=== PATIENT | female | born 2000 | race Two or more races ===

== ENCOUNTER 2025-04-08 00:25 | Observation (INO) | payer MEDICAID, OTHER ==
[~2025-04-08] VITALS: Ht 160 cm; Wt 59.0 kg
[2025-04-08 01:14] LABS: Fern Testing Negative
[2025-04-08] MEDS: LACTATED RINGER'S 1,000 ML IV ONE (01:15)
[2025-04-08] MEDS: ONDANSETRON HCL 4 MG/2 ML VIAL IV ONE (01:15)
--- NOTE | 2025-04-08 01:54 | DVH ---
OB ULTRASOUND <14 WEEKS: HISTORY: LEAKING OF FLUID AND CRAMPING TECHNIQUE: Multiple real-time grayscale sonographic images of the pelvis with duplex Doppler color f low, spectral and M-mode analysis. COMPARISON: None FINDINGS: Limited assessment for placenta location in cervix. Cervix is closed measuring 3.3 cm. Single live intrauterine gestation in the cephalic position. heart rate 165 beats per minute. Placenta is anterior and clear of the internal os. IMPRESSION: Single live IUP. Cervix is closed measuring 3.7 cm. Placenta is clear of the internal os.
[2025-04-08 02:13] LABS: Urine Protein, UAD Negative (Negative)
== END 2025-04-08 02:26 | disposition home or self-care (01) ==
LOC: LDRP 00:25
PROVIDERS: ADMIT Obstetrics & Gynecology; ATTEND Obstetrics & Gynecology
DX: O62.9 Abnormality of forces of labor, unspecified (principal); O21.2 Late vomiting of pregnancy; Z3A.27 27 weeks gestation of pregnancy; Z98.890 Other specified postprocedural states
CPT/HCPCS: 76815; 81001; 81002; 84112; 94760; G0378; Q0114; J2405

== ENCOUNTER 2025-04-29 16:05 | Observation (INO) | payer MEDICAID ==
[~2025-04-29] VITALS: Ht 157.5 cm; Wt 65.8 kg
--- NOTE | 2025-04-29 17:04 | DVH ---
LIMITED OB ULTRASOUND > 14 WKS: HISTORY: fall TECHNIQUE: Multiple real-time grayscale images of the gravid uterus with duplex Doppler color flow and M-mode spectral analysis. TRANSDUCER: Transabdominal FINDINGS: IUP single live fetus at 30 weeks 3 days based on composite averages of the BPD, head circumference, abdominal circumference and femur length heart rate 147 beats per minute BEATA 9.3 cm, MVP: 4.7 cm Cervix 3.15 Cephalic Presentation Anterior Grade 2 Placenta without previa or abruption. IMPRESSION: 1. IUP single live fetus at 30 weeks 3 days AUA corresponding to an PRERNA of 07/05/2025
== END 2025-04-29 17:23 | disposition home or self-care (01) ==
LOC: LDRP 16:05
PROVIDERS: ADMIT Obstetrics & Gynecology; ATTEND Obstetrics & Gynecology
DX: O36.8130 Decreased fetal movements, third trimester, not applicable or unspecified (principal); Z3A.30 30 weeks gestation of pregnancy; Z98.890 Other specified postprocedural states
CPT/HCPCS: 59025; 76815; 81002; 94760; G0378

== ENCOUNTER 2025-05-21 14:55 | Observation (INO) | payer MEDICAID ==
[~2025-05-21] VITALS: Ht 160 cm; Wt 65.8 kg
[2025-05-21] MEDS: TERBUTALINE SULFATE 1 MG/ML 1ML VIAL SC SCH (16:02)
[2025-05-21 16:25] LABS: Urine Protein, UAD Negative (Negative)
[2025-05-21 16:26] LABS: Vaginal Bacteria Many; Vaginal Epithelial Cells Few; Vaginal Trichomonas Not Present
[2025-05-21 16:27] LABS: Vaginal Clue Cells Few
[2025-05-21] MEDS ORDERED: PREN-96 PO (17:22)
--- NOTE | 2025-05-21 22:53 | DVHDS2 ---
Discharge Summary Date of Admission May 21, 2025 at 15:09 Date of Discharge: May 21, 2025 Admitting Diagnosis 33.4 weeks rule out labor and srom Wounds: none Labs/Diagnostic Data: Laboratory Results Test 05/21/25 16:00 05/21/25 15:35 Urine Color Light-yellow (Yellow) Urine Clarity Turbid (Clear) Urine pH 6.5 (5.0-9.0) Urine Specific [place] 1.010 (1.001-1.035) Urine Protein Negative (Negative) Urine Ketones Negative (Negative) Urine Blood Negative /uL (Negative) Urine Nitrite Negative (Negative) Urine Bilirubin Negative (Negative) Urine Urobilinogen Normal mg/dL (Negative) Urine Leukocyte Esterase 2+ /uL (Negative) Urine RBC 1 /hpf (0 - 4) Urine Microscopic WBC 11 /HPF (0-5) Urine Squamous Epithelial Cells Few /hpf (<5) Urine Bacteria Few /hpf (None Seen) Urine Mucus Few (None Seen) Urine Glucose Normal mg/dL (Normal) Placental Tjlfb-3-Nlptzntyaolct Negative Vaginal WBC (Wet Prep) Few Vaginal RBC (Wet Prep) Rare Vaginal Epithelial Cells (Wet Prep) Few Vaginal Bacteria (Wet Prep) Many Vaginal Trichomonas (Wet Prep) Not present Vaginal Yeast (Wet Prep) None seen Vaginal Clue Cells (Wet Prep) Few Brief Hx & Hospital Course: NST BPP Consults/Reason for consult none Operations or Procedures nst bpp reassuring Condition at Discharge: Good Final Diagnosis/Problems List 33.4 weeks Discharge Disposition: Home Discharge Instruct/Medications Diet: Regular Activity: No Restrictions, As Tolerated Activity comment: kick counts labor precautions Follow Up/Referral: as scheduled Medications: no new meds Scheduled Vit W/ Ferrous Fumara ( One Daily), 1 TAB PO DAILY, (Reported) Discharge Statement: "Patient was advised to return to the ER or call 911 if any headaches, dizz iness, shortness of breath, chest pain, abdominal pain, bleeding, fevers, or worsening of medical condition. Patient was counseled about treatment plan, medications, possible side effects, patientverbalized understanding. All questions were answered to the best of my ability. This discharge took greater then 30 minutes in planning, reviewing documentation, counseling the patient, and discussing with other team members." ASSESSMENT ASSESSMENT Assessment Visit Coding OBGYN Date of Service: May 21, 2025 Billing Provider: HARIS MONTANEZ DO MICRO PALEONTOLOGIST Common Visit Codes: [id number] INP/OBS CARE(HIGH), 07765-XDZ/OBS SAME DATE (LOW), 82736-LUR/OBS SAME DATE (MOD) MICRO PALEONTOLOGIST Procedure Codes: 13291-36- NON-STRESS TEST HARIS MONTANEZ DO May 21, 2025 22:53
== END 2025-05-21 17:45 | disposition home or self-care (01) ==
LOC: LDRP 14:55 → UNDOADMOB 14:55 → LDRP 15:09
PROVIDERS: ADMIT Obstetrics & Gynecology; ATTEND Obstetrics & Gynecology
DX: O62.9 Abnormality of forces of labor, unspecified (principal); Z3A.33 33 weeks gestation of pregnancy; Z98.890 Other specified postprocedural states
CPT/HCPCS: 59025; 81001; 81002; 84112; 87210; 94760; 96372; A4649; G0378; J3105

== ENCOUNTER 2025-06-15 20:01 | Inpatient (IN) | payer MEDICAID ==
[~2025-06-15] VITALS: Ht 160 cm; Wt 66.7 kg
[~2025-06-15 20:01] MED LIST: PREN-96 PO
[2025-06-15 21:08] LABS: Fern Testing Negative
--- NOTE | 2025-06-15 21:09 | DVH ---
LIMITED OB ULTRASOUND > 14 WKS: HISTORY: labor check, previous placenta previa TECHNIQUE: Multiple real-time grayscale images of the gravid uterus with duplex Doppler color flow and M-mode spectral analysis. TRANSDUCER: Transabdominal COMPARISON: US OB LIMITED on DOS: 05/23/25, US OB BIOPHYSICAL PROFILE W/O N-STR on DOS: 05/23/25, US OBSTERICAL LIMITED on DOS: 04/29/25, US OBSTERICAL LIMITED on DOS: 04/08/25 FINDINGS: IUP single live fetus at 36 weeks and 6 days based on composite averages of the BPD, head circumference, abdominal circumference and femur length Estimated weight 2983 grams heart rate 144 beats per minute BEATA 12.2 cm, deepest pocket measures 6.2 cm. Cervix is not evaluated Cephalic Presentation Anterior Placenta without previa or abruption. Limited assessment of anatomy. Grossly, 4-chamber heart, stomach, kidneys and bladder are within normal limits. IMPRESSION: IUP single live fetus at 36 weeks and 6 days AUA corresponding to an PRERNA of 07/07/2025
[2025-06-15] MEDS: LACTATED RINGER'S 1,000 ML IV ONE (21:46)
[2025-06-15] MEDS: LACTATED RINGER'S 1,000 ML IV SCH (21:48)
[2025-06-15] MEDS: NIFEdipine 10 MG CAP PO SCH (21:49)
[2025-06-15 22:24] LABS: Hematocrit 37.6 % (36.0-46.0); Hemoglobin 13.0 g/dL (12.2-16.2); Mean Corpuscular Hemoglobin 31.3 pg (28.0-32.0); Mean Corpuscular Volume 90.4 fL (80.0-100.0); Nucleated Red Blood Cells % 0.1 %
[2025-06-15 22:31] LABS: Alanine Aminotransferase 21 U/L (7-40); Albumin 4.0 g/dL (3.2-4.8); Alkaline Phosphatase 109 U/L (46-116); Anion Gap 11 (5-15); BUN/Creatinine Ratio 7.2 (10.0-20.0); Bilirubin, Total 0.6 mg/dL (0.2-1.0); Blood Urea Nitrogen 5 mg/dL (9-23); Calcium 9.1 mg/dL (8.7-10.4); Carbon Dioxide 18 mmol/L (20-31); Chloride 112 mmol/L (98-107); Glucose 68 mg/dL (74-106); Potassium 3.7 mmol/L (3.5-5.1); Sodium 141 mmol/L (136-145); Total Protein 7.0 g/dL (5.7-8.2)
[2025-06-15 22:39] LABS: INR 0.91 (0.9-1.15); Partial Thromboplastin Time 27.6 SEC (24.5-34.5); Prothrombin Time 9.7 sec (9.3-11.8)
--- NOTE | 2025-06-15 23:46 | DVHHP2 ---
OB CC & HPI Date Date of Admission: Jun 15, 2025 Patient Identification: : 6 Para: 3 EDC: Jul 05, 2025 EGA: 37w 1d Chief Complaints: Reason for admission: other (Contractions) Indication for : desires repeat , other (Contractions) Other reason for admission: 24yo G6, 3023, EDC 07/05/25, EGA 37w 1d brought in by ambulance / paramedics with report of contractions that started at 5:55pm, possible rupture of membranes. Receiving care with Dr Bowser at the [facility]. complicated by h/o previous C- section x3 History of Present Complaints 24yo G6, 3023, EDC 07/05/25, EGA 37w 1d brought in by ambulance / paramedics with report of contractions that started at 5:55pm, possible rupture of membranes. She reports normal movements, no CUMMINS , vision changes or epigastric pain Receiving care with Dr Bowser at the [facility]. complicated by h/o previous C- section x3 Past Medical History Cardiac: No pertinent Hx Pulmonary: No pertinent Hx Central Nervous System: No pertinent Hx GI: No pertinent Hx Hemotology/Oncology: No pertinent Hx Hepatobiliary: No pertinent Hx Psychiatric: No pertinent Hx Musculoskeletal: No pertinent Hx Rheumotologic: No pertinent Hx Infectious Disease: No peritnent Hx ENT: No pertinent Hx Renal/: No pertinent Hx Endocrine: No pertinent Hx Dermatology: No pertinent Hx Past Surgical History: Others 2 C- sections done in [place], 1 C- Section in [place]. OB History OB History Care: [facility] Care Ultrasounds: Normal mid trimester US Obstetrical Complications: None Medical Complications: None ( ) Other Concerns: > h/o C- section x3 > Rh Negative; had Rhogam on 04/12/25 > Rubella NI Allergies: Coded Allergies: NO KNOWN ALLERGIES (Unverified , 04/08/25) Home Meds Active Scripts Ibuprofen (Ibuprofen) 800 Mg Tab, 800 MG PO TID PRN for 5 Days, #21 TAB Prov:BRENDA BOWSER DO 06/16/25 Hydrocodone-Acetaminophen (Hydrocodone/Acetaminophen 10-325 mg) 1 Tab Tab, 1 TAB PO Q6HPRN PRN for 6 Days, #24 TAB Prov:BRENDA BOWSER DO 06/16/25 Docusate Sodium (Colace) 100 Mg Cap, 1 CAP PO BID, #60 CAP 2 Refills Prov:BRENDA BOWSER DO 06/16/25 Reported Medications Vit W/ Ferrous Fumara ( One Daily) Daily Tab, 1 TAB PO DAILY, #90 TAB 3 Refills 05/21/25 Current Medications Current Medications Medications (Trade) Dose Ordered Sig/Francisco Route PRN Reason Start Time Stop Time Status Last Admin Nifedipine (Procardia Capsule) 10 mg Q4HR PO 06/15/25 22:00 06/15/25 21:49 Lactated Ringer's 1,000 ml @ 125 mls/hr Q8H IV 06/15/25 21:30 06/15/25 21:48 Family & Social History Family/Social History Past Family/Social History: Non- contributory Blood Type: A- Rubella: not immune RPR/VDRL: Negative GBS Status: Unknown HBsAG: Negative Review of Systems Constitutional: No symptom reported Ears, Nose, & Throat: No symptom reported Eyes: No symptom reported Pulmonary/Respiratory: No symptom reported Cardiovascular: No symptom reported Gastrointestinal: No symptom reported Genitourinary: No symptom reported Musculoskeletal: No symptom reported Skin: No symptom reported Psychiatric: No symptom reported Endocrine: No symptom reported Hemotologic/Lymphatic: No symptom reported OB Admission Exam Physical Exam Vitals: Vital Signs Date Time Temp Pulse Resp B/P (MAP) Pulse Ox O2 Delivery O2 Flow Rate FiO2 06/15/25 21:49 115/69 HEENT: TMs Normal, Fontanelles Normal, Nasal Mucosa Normal, Eyes non-injected, Oropharynx Normal, PERRLA, Moist Membranes, EOMI Heart: Rhythm Normal Lungs: Clear Abdomen: Gravid (and non-tender) Extremities: Normal Reflexes: Normal Cervical Dilatation: Fingertip Effacement: 50% Station: -2 Membranes: Intact Heart Rate: 130's Accelerations: Accelerations Present Decelerations: No Decelerations Roof Shingler Variability: Average (6-25) Contractions on Admission: < 5 Minutes Apart Date/Time Contractions Began: 06/15/25 @17:55 Frequency of Contractions: 2-3min Duration: 45 Intensity: Mild OB Plan Plan Admitting Diagnosis: IUP at 37w 1d h/o C- section x3 Desires Repeat C- section with BTL Contractions REPEAT W/BTL, CONTRACTIONS Plan: Section Other Plan: > Plan of care discussed with Patient, partner & family > Assessment to r/o SROM: > Speculum exam shows no pooling, Nitrazine test, amniosure,and ferning negative > BPP 8/8; BEATA 12.2cm MVP 6.2cm EFW 2983g > Process, Risks, benefits, of available management options discussed, including starting with expectant management - to see if UCs will resolve with IV hydration, IIf contractions persist, will proceed to do a > > > > Repeat C- section with BTL > Patient agrees to starting with expectant management at this time; other int erventions as indicated > Informed Consent obtained > Consent for possible blood transfusion obtained. > All questions answered. > Admit for Observation > IV hydration > Routine C- section Pre-operative Lab > Routine L & D Admission orders > Consents obtained > Possible Risks and possible complications explained > If contractions persists with hydration, will proceed to do a Repeat Section with BTL > Supportive care Visit Coding OBGYN Date of Service: Jun 15, 2025 Billing Provider: PRIMO JAY CNM INDUSTRIAL CLEANER Common Visit Codes: [id number] INP/OBS CARE (HIGH) INDUSTRIAL CLEANER Procedure Codes: 68603-85- NON-STRESS TEST PRIMO JAY CNM Jun 15, 2025 23:46
[2025-06-16] VITALS (17 sets, daily range): BP systolic 96–118; BP diastolic 58–76; PULSE 66–90; RESP 12–18; TEMP 97.6–97.9; O2SAT 97–100
[2025-06-16 00:16] LABS: Urine Protein, UAD Negative (Negative)
[2025-06-16 00:39] LABS: Amphetamine Screen, Urine Neg (NEGATIVE); Barbiturate Scree,Urine Neg (NEGATIVE); Benzodiazephine Screen, Urine Neg (NEGATIVE); Cannabinoid Screen, Urine Neg (NEGATIVE); Cocaine Screen, Urine Neg (NEGATIVE); Opiate Scree,Urine Neg (NEGATIVE); Phencyclidine Screen, Urine Neg (NEGATIVE)
--- NOTE | 2025-06-16 00:44 | DVHHP ---
CHIEF COMPLAINT: Labor. HISTORY OF PRESENT ILLNESS: The patient is a 4, para 3 female with EDC 07/05, estimated gestational age of 37-plus weeks, admitted for labor. The patient wants repeat section with bilateral ligation. She had previous section x3. She wishes to proceed with repeat section with bilateral ligation. The patient declined all . She fully understands the risk of labor and RDS in the baby. PAST MEDICAL HISTORY: None. PAST SURGICAL HISTORY: . SOCIAL HISTORY: None. FAMILY HISTORY: None. OBSTETRIC AND GYNECOLOGIC HISTORY: Three sections. REVIEW OF SYSTEMS: Consistent with HPI. PHYSICAL EXAMINATION: VITAL SIGNS: Stable, afebrile. HEENT: Within normal limits. CARDIOVASCULAR: Regular rate and rhythm. LUNGS: Clear to auscultation. BREASTS: Symmetrical. No masses. ABDOMEN: Gravid, positive heart. PELVIS: Uterine contractions 1 cm q. 2-4 minutes. EXTREMITIES: No clubbing, cyanosis or edema. IMPRESSION: * Anterior at 37-plus weeks in early labor. * Previous section x3. * Desires bilateral tubal ligations. PLAN: Repeat section with bilateral tubal ligation. Informed consent obtained. Risks and complications of surgery, including infection, bleeding, hematoma formation, injury to bowel, bladder or surrounding organ, possibility of DVT, pulmonary embolus and risk of anesthesia discussed with the patient. Options reviewed. Possibility of failure with tubal sterilization discussed with the patient. Use of Filshie clip discussed with the patient. The patient fully understands. She wishes to proceed with planned procedure. DO AMAURY Farias TID: [id number] RECEIPT: [id number]
[2025-06-16] MEDS: LACTATED RINGER'S 1,000 ML IV ONE (05:00)
[2025-06-16] MEDS ORDERED: LACT. RINGERS/OXYTOCIN 20UNITS 1,000 ML IV ONE (05:30)
[2025-06-16] MEDS ORDERED: GUM (CHEWING) 1 GUM CHEW CHEW ONE (05:30)
[2025-06-16] MEDS: ceFAZolin 1GM/50ML 50 ML IV SCH ×2 (05:30→14:01)
[2025-06-16] MEDS ORDERED: IBUP-1456 PO (05:31)
[2025-06-16] MEDS ORDERED: DOCU-94 PO (05:31)
[2025-06-16] MEDS ORDERED: HYDR-4072 PO (05:31)
[2025-06-16] MEDS ORDERED: MORPHINE SULF PF 5 MG/10 ML VIAL ONE (05:57)
[2025-06-16] MEDS ORDERED: fentaNYL CITRATE 100 MCG/2 ML VL ONE (05:58)
[2025-06-16] MEDS: TRANEXAMIC ACID 10 ML ONE (06:15)
[2025-06-16] MEDS: ceFAZolin 2 GM/D5W50ml 50 ML IV ONE (06:30)
--- NOTE | 2025-06-16 06:37 | DVHOP2 ---
Operative Report DATE OF OPERATION: 06/16/25 PREOPERATIVE DIAGNOSES: 1. IUP AT 37WKS IN PTL desires repeat section.,PREVIOUS CSX3 2. Desires bilateral tubal ligation POSTOPERATIVE DIAGNOSES: 1. SAME 2. Desires bilateral tubal ligation PROCEDURES: Repeat section with bilateral tubal ligation via Filschie Clips SURGEON: Bhumika Bowser D.O./CHARLES ANESTHESIOLOGIST: Dr. SOTO TYPE OF ANESTHESIA : SPINAL ESTIMATED BLOOD LOSS: 500 mL CONSENT: The patient was informed of the risks and benefits of the procedure. These include but are not limited to , complications of anesthesia, postoperative infection, incomplete relief of symptoms, recurrence of symptoms, damage to blood vessels, nerves and tendons, deep venous thrombosis, pulmonary embolism and possible need for repeat surgery in the future. Surgery was opted. FINDINGS: Baby [F] with apgars [8] and [9]. Grossly normal appearing tubes and ovaries. .WT OF BABY 6-1,2750G TISSUE TO PATHOLOGY: Placenta. PROCEDURE IN DETAIL: The patient was taken to the operating room where she was placed under spinal anesthesia. She was then prepped and draped in the usual sterile manner in supine position with a leftward tilt. A Pfannenstiel skin incision was then made 2 cm above the symphysis pubis. This incision was carried to the underlying layer of fascia. The fascia was nicked in the midline and the incision was extended laterally. The superior aspect of the fascial incision was grasped and elevated. Underlying rectus muscle was dissected off bluntly. The same procedure was done to the inferior aspect of the fascial incision. The rectus muscles were then in the midline. Peritoneum was identified and entered. Peritoneal incision was extended superiorly and inferiorly with good visualization of the bladder. Bladder blade was inserted. Vesicouterine peritoneum was identified and entered. Lower uterine segment was incised in a transverse fashion. The was delivered from vertex presentation. The infant was baby [F] with Apgars of [8] and [9]. Placenta was then removed manually. Uterus was exteriorized and cleared off all clots and debris. Uterine incision was repaired using 0 Vicryl in a double-layered fashion. No bleeding was noted. Bilateral tubal ligation was then performed using Be. Placed in the ampullary region and identifying the fimbria distally. The isthmic portion of the right tube was clipped using Filschie Clip. The same procedure was done on the opposite side. No bleeding was noted. Peritoneum was closed using 0 Vicryl, fascia was closed using 0 Maxon, and skin was closed using eder. Estimated blood loss was noted to be 500 mL. The patient tolerated the procedure well. She was taken to the recovery room in stable condition. Visit Coding OBGYN Date of Service: Jun 16, 2025 Billing Provider: BHUMIKA BOWSER DO LEAD GENERATION REPRESENTATIVE Common Visit Codes: [id number] INP/OBS CARE (HIGH) LEAD GENERATION REPRESENTATIVE Procedure Codes: [id number] DELIVERY ONLY BHUMIKA BOWSER DO Jun 16, 2025 06:37
--- NOTE | 2025-06-16 06:39 | POSTOP ---
Post-Operative Note Post-Operative Note Preop Diagnosis IUP AT 37WKS IN LABOR,DESIRES RCS W/BTL,PREVIOUS CSX3 Postop Diagnosis: SAME Operation performed RCS WITH BTL Specimen BBAY GIRL,APGARS 8-9 Anesthesia: Regional Anesthesiologist: BRITTANY Blood Loss(fluid mgmt) 500ML Surgeon Brenda Bowser Master Barber CHARLES Implant FILSCHIE Complications & Mgmt NONE Date 06/16/25 Time 06:37 Visit Coding OBGYN Date of Service: Jun 16, 2025 Billing Provider: BRENDA BOWSER DO INSIDE SALES DIRECTOR Common Visit Codes: [id number] OBS CARE (HIGH) INSIDE SALES DIRECTOR Procedure Codes: [id number] DELIVERY ONLY BRNEDA BOWSER DO Jun 16, 2025 06:39
[2025-06-16] MEDS ORDERED: ONDANSETRON HCL 4 MG/2 ML VIAL IV PRN (06:45)
[2025-06-16] MEDS ORDERED: hydrALAZINE HCL 20 MG/ML VL IV PRN (06:45)
[2025-06-16] MEDS ORDERED: diphenhydrAMINE HCL 50 MG/1 ML VL IV PRN (06:45)
[2025-06-16] MEDS ORDERED: MIDAZOLAM HCL 2MG/2ML 2ml VIAL (1mg/ml) IV PRN (06:45)
[2025-06-16] MEDS ORDERED: HYDROmorphone HCL 2 MG/ML VL/or syr IV PRN (06:45)
--- NOTE | 2025-06-16 07:24 | DVHPN2 ---
OB Labor Progress Note Date and Time Seen Date Seen: Jun 16, 2025 Time Seen: 02:00 Subjective Patient reports: No new complaints Subjective Comment Feels contractions occasionally but not strong Objective Vital Signs VSS Monitoring Method Monitoring Method: External Heart Rate Heart Rate Baseline: 135 Heart Rate Variability: Moderate Presence of FHR Accelerations: Yes Presence of FHR Decelerations: No Changes in Trends of Patterns: No Are all 5 Components of the FH: Yes Contractions Contractions Frequency: Other (6-10min) Duration of Contraction: 70 Contractions Intensity: Mild Contractions Resting Tone: Relaxed Membranes Membranes: Intact Vaginal Exam Vag Exam Deferred: Yes Medications Medications - Pitocin: No Medication - Epidural: No Medication - Other Procardia per consult with Dr Bowser Lab Results Lab Results Vital Signs Date Time Temp Pulse Resp B/P (MAP) Pulse Ox O2 Delivery O2 Flow Rate FiO2 06/16/25 01:48 104/56 Current Medications Medications (Trade) Dose Ordered Sig/Francisco Start Time Stop Time Status Last Admin Dose Admin Lactated Ringer's 1,000 ml @ 1,000 mls/hr Q1H ONCE 06/15/25 20:45 06/15/25 21:44 DC 06/15/25 21:46 1,000 MLS/HR Nifedipine (Procardia Capsule) 10 mg Q4HR 06/15/25 22:00 06/16/25 01:48 10 MG Lactated Ringer's 1,000 ml @ 125 mls/hr Q8H 06/15/25 21:30 06/15/25 21:48 125 MLS/HR Lactated Ringer's 1,000 ml @ 1,000 mls/hr Q1H ONCE 06/16/25 05:00 06/16/25 05:59 DC Cefazolin Sodium/ Dextrose 50 ml @ 50 mls/hr ONCE ONCE 06/16/25 06:30 06/16/25 07:29 Oxytocin 1,000 ml @ 125 mls/hr Q8H ONCE 06/16/25 05:30 06/16/25 13:29 Ondansetron HCl (Zofran) 4 mg Q4HP PRN 06/16/25 05:30 Cefazolin Sodium 50 ml @ 100 mls/hr Q8H 06/16/25 05:30 06/16/25 21:59 [place] Gum (Chewing Gum) 1 gum ONCE ONCE 06/16/25 05:30 12/27/25 05:31 DC Diphenhydramine HCl (Benadryl Injection) 25 mg Q4HP PRN 06/16/25 06:45 UNV Hydromorphone HCl (Dilaudid Injection) 0.5 mg Q15M PRN 06/16/25 06:45 06/16/25 07:16 UNV Dexamethasone Sodium Phosphate (Decadron Injection) 10 mg CIS COORDINATOR PRN 06/16/25 06:45 06/16/25 06:46 UNV Ondansetron HCl (Zofran) 4 mg ONCE PRN 06/16/25 06:45 06/16/25 06:46 UNV Hydralazine HCl (Apresoline Injection) 5 mg Q10M PRN 06/16/25 06:45 06/16/25 07:36 UNV Midazolam HCl (Versed Injection) 1 mg Q10M PRN 06/16/25 06:45 06/16/25 07:26 UNV Ephedrine Sulfate (ePHEDrine SULFATE) 10 mg Q10M PRN 06/16/25 06:45 06/16/25 07:26 UNV Laboratory Tests Test 06/15/25 23:30 06/15/25 21:54 06/15/25 20:15 Range/Units Urine Color Light-yellow Yellow Urine Clarity Clear Clear Urine pH 6.0 5.0-9.0 Urine Specific [place] 1.008 1.001-1.035 Urine Protein Negative Negative Urine Ketones Trace Negative Urine Blood Negative Negative /uL Urine Nitrite Negative Negative Urine Bilirubin Negative Negative Urine Urobilinogen Normal Negative mg/dL Urine Leukocyte Esterase Negative Negative /uL Urine RBC <1 0 - 4 /hpf Urine Microscopic WBC < 1 0-5 /HPF Urine Squamous Epithelial Cells Few <5 /hpf Urine Bacteria None seen None Seen /hpf Urine Glucose Normal Normal mg/dL Urine Opiates Screen Neg NEGATIVE Urine Fentanyl Screen Neg NEGATIVE Urine Barbiturates Screen Neg NEGATIVE Urine Phencyclidine Screen Neg NEGATIVE Urine Amphetamines Screen Neg NEGATIVE Urine Benzodiazepines Screen Neg NEGATIVE Urine Cocaine Screen Neg NEGATIVE Urine Cannabinoids Screen Neg NEGATIVE White Blood Count 7.4 4.4-10.8 10^3/uL Red Blood Count 4.16 4.0-5.20 10^6/uL Hemoglobin 13.0 12.2-16.2 g/dL Hematocrit 37.6 36.0-46.0 % Mean Corpuscular Volume 90.4 80.0-100.0 fL Mean Corpuscular Hemoglobin 31.3 28.0-32.0 pg Mean Corpuscular Hemoglobin Concent 34.6 32.0-36.0 g/dL Red Cell Distribution Width 12.9 11.8-14.3 % Platelet Count 136 L 140-450 10^3/uL Mean Platelet Volume 9.4 6.9-10.8 fL Neutrophils (%) (Auto) 63.2 37.0-80.0 % Lymphocytes (%) (Auto) 23.0 10.0-50.0 % Monocytes (%) (Auto) 12.0 0.0-12.0 % Eosinophils (%) (Auto) 1.2 0.0-7.0 % Basophils (%) (Auto) 0.6 0.0-2.0 % Neutrophils # (Auto) 4.7 1.6-8.6 10 ^3/uL Lymphocytes # (Auto) 1.7 0.4-5.4 10 ^3/uL Monocytes # (Auto) 0.9 0-1.3 10 ^3/uL Eosinophils # (Auto) 0.1 0-0.8 10 ^3/uL Basophils # (Auto) 0 0-0.2 10 ^3/uL Nucleated Red Blood Cells 0.1 % Prothrombin Time 9.7 9.3-11.8 sec Prothrombin Time INR 0.91 0.9-1.15 Activated Partial Thromboplast Time 27.6 24.5-34.5 SEC Sodium Level 141 136-145 mmol/L Potassium Level 3.7 3.5-5.1 mmol/L Chloride Level 112 H 98-107 mmol/L Carbon Dioxide Level 18 L 20-31 mmol/L Anion Gap 11 5-15 Blood Urea Nitrogen 5 L 9-23 mg/dL Creatinine 0.69 0.550-1.02 mg/dL Glomerular Filtration Rate Calc 124 >90 mL/min BUN/Creatinine Ratio 7.2 L 10.0-20.0 Serum Glucose 68 L 74-106 mg/dL Calcium Level 9.1 8.7-10.4 mg/dL Total Bilirubin 0.6 0.2-1.0 mg/dL Aspartate Amino Transferase (AST) 23 13-40 U/L Alanine Aminotransferase (ALT) 21 7-40 U/L Alkaline Phosphatase 109 46-116 U/L Total Protein 7.0 5.7-8.2 g/dL Albumin 4.0 3.2-4.8 g/dL Treponema pallidum Antibody Non-reactive Negative Hepatitis C Antibody Negative Negative Amniotic Fluid Ferning Test Negative Placental Czbil-8-Iekgoishljoec Negative Assessment Assessment IUP at 37w 1d h/o C section x3 Desires Repeat C section with BTL Plan Plan > Continue EFM > Prepare for C- section in AM > Intrauterine Resuscitation PRN Plan discussed with: Patient, Spouse Visit Coding OBGYN Date of Service: Jun 16, 2025 Billing Provider: PRIMO JAY CNM CENTRAL SUPPLY MANAGER Common Visit Codes: [id number] INP/OBS CARE(HIGH) CENTRAL SUPPLY MANAGER Procedure Codes: 06310-38- NON-STRESS TEST PRIMO JAY CNM Jun 16, 2025 07:24
[2025-06-16] MEDS: ONDANSETRON HCL 4 MG/2 ML VIAL IV PRN (08:06)
[2025-06-16] MEDS: ACETAMINOPHEN IV 1000 MG/100ML (10MG/ML) IV PRN (13:26)
[2025-06-16 21:39] LABS: Hematocrit 34.9 % (36.0-46.0); Hemoglobin 12.0 g/dL (12.2-16.2); Mean Corpuscular Hemoglobin 30.8 pg (28.0-32.0); Mean Corpuscular Volume 89.2 fL (80.0-100.0); Nucleated Red Blood Cells % 0.0 %
[2025-06-17] VITALS (13 sets, daily range): BP systolic 103–116; BP diastolic 60–73; PULSE 63–82; RESP 16–18; TEMP 97.8–98.4; O2SAT 96–99
[2025-06-17] MEDS ORDERED: HYDROcodone-ACET 5/325MG TAB PO PRN (07:00)
[2025-06-17] MEDS ORDERED: BISACODYL 10 MG RECT SUPP PR PRN (07:00)
--- NOTE | 2025-06-17 07:00 | DVHPN2 ---
Progress Note Date Seen: Jun 17, 2025 Subjective S: > Lochia minimal. > Clear liquid diet well tolerated. > Ambulating and voiding well w/o feeling dizzy or lightheaded. > Pain relieved with analgesics. > Passing flatus but no BM yet. > w/o problem vital signs Vital Sign Date Time Temp Pulse Resp B/P (MAP) Pulse Ox O2 Delivery O2 Flow Rate FiO2 06/16/25 23:00 97.6 68 16 98/58 (71) 100 97.6 06/16/25 19:30 Room Air 06/16/25 07:08 6.0 100 Total Intake and Output 06/16/25 06/16/25 06/17/25 15:00 23:00 07:00 Output Total 3500 ml Balance -3500 ml medications Current Medications Medications Dose Ordered Sig/Francisco Route Start Time Stop Time Status Last Admin Dose Admin Lactated Ringer's 1,000 ml @ 125 mls/hr Q8H IV 06/15/25 21:30 06/16/25 21:30 125 MLS/HR Ondansetron HCl 4 mg Q4HP PRN IV 06/16/25 05:30 06/16/25 08:06 4 MG Diphenhydramine HCl 25 mg Q4HP PRN IV 06/16/25 06:45 Acetaminophen 1,000 mg Q8HPRN PRN IV 06/16/25 07:45 06/17/25 07:44 06/17/25 01:58 1,000 MG laboratory and microbiology Laboratory Tests 06/16/25 21:19 06/15/25 21:54 Test 06/15/25 21:54 Range/Units Serum Glucose 68 L 74-106 mg/dL Objective O: > A&O x3 NAD. > Afebrile, VSS > Chest: heart and lung sounds normal. > Breasts: Nipples intact w/o cracks or soreness > Abdomen: normal BS, soft, non-tender, no rebound or guarding, fundus firm @ U-1, > Lower abdominal Incision site with steri-strips on, same clean, dry and intact. Edges in good approximation. No edema, erythema or induration > Extremities: no edema or tenderness > Lochia - minimal Assessment/Plan > 24yo now Post operative & ppd #1 s/p Repeat Section with BTL, doing well. > Blood Type: A Rh: Negative. Needs Rhogam as baby is Rh Positive > Breast feeding > Rubella Non Immune; Offer Vaccine prior to delivery > Pain control with oral medications > Bowel regimen: Increase fluid intake and fiber in diet, Laxative PRN > PP BCM Plan: Had BTL with the C- section > Discharge plan: Daily assessment findings will determine when to discharge patient Plan discussed with: Patient, Spouse Visit Coding OBGYN Date of Service: Jun 17, 2025 Billing Provider: PRIMO JAY CNM ROVING WEIGHT GAUGER Common Visit Codes: [id number] INP/OBS CARE(HIGH) PRIMO JAY CNM Jun 17, 2025 07:00
[2025-06-17 09:11] LABS: Hematocrit 37.9 % (36.0-46.0); Hemoglobin 12.9 g/dL (12.2-16.2); Mean Corpuscular Hemoglobin 31.0 pg (28.0-32.0); Mean Corpuscular Volume 91.0 fL (80.0-100.0); Nucleated Red Blood Cells % 0.0 %
[2025-06-17] MEDS: RHO (D) IMMUNE GLOBULIN 300 MCG INJ IM ONE (09:14)
[2025-06-17] MEDS: IBUPROFEN 800 MG TAB PO PRN (09:24)
[2025-06-17] MEDS: DOCUSATE SOD 100 MG CAP PO SCH (09:25)
[2025-06-17] MEDS: SIMETHICONE 80 MG CHEWABLE TABLET PO SCH (11:16)
[2025-06-17] MEDS: HYDROcodone-ACET 5/325MG TAB PO PRN (13:29)
[2025-06-18 03:00] VITALS: BP 117/67; PULSE 73; RESP 16; TEMP 98.7; O2SAT 99
--- NOTE | 2025-06-18 05:34 | DVHPN2 ---
Progress Note Date Seen: Jun 18, 2025 Subjective S: > Lochia minimal. > Regular diet well tolerated. > Ambulating and voiding well w/o feeling dizzy or lightheaded. > Pain relieved with oral analgesics. > Passing flatus but no BM yet. > w/o problem and also Feeding infant with Formula > Desires and Requests to be discharged today vital signs Vital Sign Date Time Temp Pulse Resp B/P (MAP) Pulse Ox O2 Delivery O2 Flow Rate FiO2 06/18/25 03:00 98.7 73 16 117/67 (84) 99 98.7 06/17/25 19:00 Room Air 06/16/25 07:08 6.0 100 Total Intake and Output 06/17/25 06/17/25 06/18/25 15:00 23:00 07:00 Intake Total 5 ml Balance 5 ml medications Current Medications Medications Dose Ordered Sig/Francisco Route Start Time Stop Time Status Last Admin Dose Admin Ondansetron HCl 4 mg Q4HP PRN IV 06/16/25 05:30 06/16/25 08:06 4 MG Diphenhydramine HCl 25 mg Q4HP PRN IV 06/16/25 06:45 Docusate Sodium 100 mg Q12HR PO 06/17/25 10:00 06/17/25 22:19 100 MG Dimethicone 80 mg QID PO 06/17/25 12:00 06/17/25 22:19 80 MG Bisacodyl 10 mg DAILYP PRN TX 06/17/25 07:00 Ibuprofen 800 mg Q8HP PRN PO 06/17/25 07:00 06/18/25 03:07 800 MG Acetaminophen/ Hydrocodone Bitart 1 tab Q4HPRN PRN PO 06/17/25 07:00 06/17/25 18:56 1 TAB Acetaminophen/ Hydrocodone Bitart 2 tab Q4HPRN PRN PO 06/17/25 07:00 laboratory and microbiology Laboratory Tests 06/17/25 08:22 06/15/25 21:54 Test 06/15/25 21:54 Range/Units Serum Glucose 68 L 74-106 mg/dL Objective O: > A&O x3 NAD. > Afebrile, VSS > Chest: heart and lung sounds normal. > Breasts: Nipples intact w/o cracks or soreness > Abdomen: normal BS, soft, non-tender, no rebound or guarding, fundus firm @ U-1, > Lower abdominal Incision site with steri-strips on, same clean, dry and intact. Incision edges in good approximation. No edema erythema or induration > Extremities: no edema or tenderness > Lochia - minimal Assessment/Plan A/P: > 24yo now Post operative & ppd #2 Repeat Section with BTL, doing well. > Blood Type: A Rh: Negative; had Rhogam on 06/17/25 > Breast feeding and Formula feeding > Rubella Non immune; Offer Vaccine prior to discharge > Pain control with oral medications > Bowel regimen: Increase fluid intake and fiber in diet, Laxative PRN > PP BCM Plan: Had BTL with the Section > Discharge plan: May discharge home later today if condition remains stable Plan discussed with: Patient, Spouse Visit Coding OBGYN Date of Service: Jun 18, 2025 Billing Provider: PRIMO JAY CNM E D TECH Common Visit Codes: [id number] INP/OBS CARE(HIGH) PRIMO JAY CNM Jun 18, 2025 05:34
--- NOTE | 2025-06-18 05:50 | DVHDS2 ---
Discharge Summary Date of Admission Jun 15, 2025 at 21:10 Date of Discharge: Jun 18, 2025 Admitting Diagnosis > IUP at 37w 1d > h/o C- section x3 > Contractions > Rubella Non- Immune Wounds: Abdominal Incision with steri -strips on, same C, D & I. Labs/Diagnostic Data: Laboratory Results Test 06/17/25 08:22 06/15/25 23:30 06/15/25 21:54 06/15/25 20:15 White Blood Count 9.5 10^3/uL (4.4-10.8) Red Blood Count 4.17 10^6/uL (4.0-5.20) Hemoglobin 12.9 g/dL (12.2-16.2) Hematocrit 37.9 % (36.0-46.0) Mean Corpuscular Volume 91.0 fL (80.0-100.0) Mean Corpuscular Hemoglobin 31.0 pg (28.0-32.0) Mean Corpuscular Hemoglobin Concent 34.1 g/dL (32.0-36.0) Red Cell Distribution Width 13.2 % (11.8-14.3) Platelet Count 147 10^3/uL (140-450) Mean Platelet Volume 9.2 fL (6.9-10.8) Neutrophils (%) (Auto) 73.0 % (37.0-80.0) Lymphocytes (%) (Auto) 20.1 % (10.0-50.0) Monocytes (%) (Auto) 5.9 % (0.0-12.0) Eosinophils (%) (Auto) 0.6 % (0.0-7.0) Basophils (%) (Auto) 0.4 % (0.0-2.0) Neutrophils # (Auto) 7.0 10 ^3/uL (1.6-8.6) Lymphocytes # (Auto) 1.9 10 ^3/uL (0.4-5.4) Monocytes # (Auto) 0.6 10 ^3/uL (0-1.3) Eosinophils # (Auto) 0.1 10 ^3/uL (0-0.8) Basophils # (Auto) 0 10 ^3/uL (0-0.2) Nucleated Red Blood Cells 0.0 % Urine Color Light-yellow (Yellow) Urine Clarity Clear (Clear) Urine pH 6.0 (5.0-9.0) Urine Specific Wilbur 1.008 (1.001-1.035) Urine Protein Negative (Negative) Urine Ketones Trace (Negative) Urine Blood Negative /uL (Negative) Urine Nitrite Negative (Negative) Urine Bilirubin Negative (Negative) Urine Urobilinogen Normal mg/dL (Negative) Urine Leukocyte Esterase Negative /uL (Negative) Urine RBC <1 /hpf (0 - 4) Urine Microscopic WBC < 1 /HPF (0-5) Urine Squamous Epithelial Cells Few /hpf (<5) Urine Bacteria None seen /hpf (None Seen) Urine Glucose Normal mg/dL (Normal) Urine Opiates Screen Neg (NEGATIVE) Urine Fentanyl Screen Neg (NEGATIVE) Urine Barbiturates Screen Neg (NEGATIVE) Urine Phencyclidine Screen Neg (NEGATIVE) Urine Amphetamines Screen Neg (NEGATIVE) Urine Benzodiazepines Screen Neg (NEGATIVE) Urine Cocaine Screen Neg (NEGATIVE) Urine Cannabinoids Screen Neg (NEGATIVE) Prothrombin Time 9.7 sec (9.3-11.8) Prothrombin Time INR 0.91 (0.9-1.15) Activated Partial Thromboplast Time 27.6 SEC (24.5-34.5) Sodium Level 141 mmol/L (136-145) Potassium Level 3.7 mmol/L (3.5-5.1) Chloride Level 112 mmol/L (98-107) Carbon Dioxide Level 18 mmol/L (20-31) Anion Gap 11 (5-15) Blood Urea Nitrogen 5 mg/dL (9-23) Creatinine 0.69 mg/dL (0.550-1.02) Glomerular Filtration Rate Calc 124 mL/min (>90) BUN/Creatinine Ratio 7.2 (10.0-20.0) Serum Glucose 68 mg/dL (74-106) Calcium Level 9.1 mg/dL (8.7-10.4) Total Bilirubin 0.6 mg/dL (0.2-1.0) Aspartate Amino Transferase (AST) 23 U/L (13-40) Alanine Aminotransferase (ALT) 21 U/L (7-40) Alkaline Phosphatase 109 U/L (46-116) Total Protein 7.0 g/dL (5.7-8.2) Albumin 4.0 g/dL (3.2-4.8) Treponema pallidum Antibody Non-reactive (Negative) Hepatitis C Antibody Negative (Negative) Amniotic Fluid Ferning Test Negative Placental [id number] Negative Other Laboratory Tests 06/17/25 08:22 06/15/25 21:54 Brief Hx & Hospital Course: Ms. Yoanna Rothman was admitted on 06/15/25 at 37w 1d EGA for Repeat Section as she was having contractions that did not resolve with hydration or tocolytic. H/o section x3. and desires a repeat section with BTL. She had Section under Spinal anesthesia (See Operative Note for details) Normal post-operative and course thus far; meeting milestones w/o any sign of infection or complication. Condition at Discharge: Good Final Diagnosis/Problems List SAME Early Term - Delivered via Section Discharge Disposition: Home Discharge Instruct/Medications Diet: Regular Diet comment: Routine regular diet rich in fiber, protein, iron and vitamin C with adequate fluid intake. Activity: Activity comment: Advance as tolerated. Balance activities with rest periods. No heavy lifting, pushing or straining. Pelvic rest x 6weeks Follow Up/Referral: Follow up with OB Provider in 1 week Medications: > Docusate Sodium > Hydrocodone- Acetaminophen > Ibuprofen > Vitamin Scheduled Docusate Sodium (Colace), 1 CAP PO BID Vit W/ Ferrous Fumara ( One Daily), 1 TAB PO DAILY, (Reported) Scheduled PRN Hydrocodone-Acetaminophen (Hydrocodone/Acetaminophen 10-325 mg), 1 TAB PO Q6HPRN PRN Ibuprofen (Ibuprofen), 800 MG PO TID PRN 40 Discharge Statement: > Post operative and self care instructions given. > emergency signs and symptoms including but not limited to pre- eclampsia precautions and signs of infection, PPH & of PPD reviewed with patient. > Follow up with OB Provider in 1 week "Patient was advised to return to the ER or call 911 if any headaches, dizziness, shortness of breath, chest pain, abdominal pain, bleeding, fevers, or worsening of medical condition. Patient was counseled about treatment plan, medications, possible side effects, patientverbalized understanding. All questions were answered to the best of my ability. This discharge took greater then 30 minutes in planning, reviewing documentation, counseling the patient, and discussing with other team members." Discharge Care Plan Instructions See pt D/C handouts ASSESSMENT ASSESSMENT Hospital Course Ms. Yoanna Rothman was admitted on 06/15/25 at 37w 1d EGA for Repeat Section as she was having contractions that did not resolve with hydration or tocolytic. H/o section x3. and desires a repeat section with BTL. She had Section under Spinal anesthesia (See Operative Note for details) Normal post-operative and course thus far; meeting milestones w/o any sign of infection or complication. Assessment SAME Early Term - Delivered; via Section Visit Coding OBGYN Date of Service: Jun 18, 2025 Billing Provider: PRIMO JAY CNM [employer]PER[employer]OR Common Visit Codes: [id number] DISCH DAY >30MIN PRIMO JAY CNM Jun 18, 2025 05:50
[2025-06-18 06:44] VITALS: BP 107/66; PULSE 97; RESP 16; TEMP 98.6; O2SAT 92
[2025-06-18 10:37] VITALS: BP 102/70; PULSE 82; RESP 18; TEMP 97.7; O2SAT 97
== END 2025-06-18 13:07 | disposition home or self-care (01) | DRG 539 ==
LOC: LDRP 20:01 → OBSVTOIN 21:10 → LDRP 21:19
PROVIDERS: ADMIT Obstetrics & Gynecology; ATTEND Obstetrics & Gynecology
PROC: 0UL70CZ Occlusion of Bilateral Fallopian Tubes with Extraluminal Device, Open Approach (ICD-10-PCS; 2025-06-16)
PROC: 10D00Z1 Extraction of Products of Conception, Low, Open Approach (ICD-10-PCS; principal; 2025-06-16 05:45)
PROC: 3E0234Z Introduction of Serum, Toxoid and Vaccine into Muscle, Percutaneous Approach (ICD-10-PCS; 2025-06-17)
DX: O34.211 Maternal care for low transverse scar from previous cesarean delivery (principal); Z30.2 Encounter for sterilization; Z37.0 Single live birth; Z3A.37 37 weeks gestation of pregnancy; Z67.11 Type A blood, Rh negative
CPT/HCPCS: 36415; 76805; 80053; 80307; 81001; 84112; 85025; 85610; 85730; 86780; 86803; 86850; 86900; 86901; 90384; 94760; 94762; 96360; 96361; 96372; G0378; J0131; J2405; J2590